=== PATIENT | female | born 2000 | race Caucasian/White ===

== ENCOUNTER → 2024-06-11 15:41 | Outpatient (REF) | payer BC, SELFPAY | LOC: CLAB 15:41 | PROVIDERS: ATTENDING PHYSICIAN Specialist | DX: N62 Hypertrophy of breast (principal) | CPT/HCPCS: 88305 ==

== ENCOUNTER 2025-04-29 17:12 | Emergency (ER) | payer BC, SELFPAY ==
[2025-04-29 17:14] VITALS: BP 126/88
[2025-04-29] MEDS: ZOFRAN ODT (ORALLY DISINTEGRATING) 4 MG PO (17:20)
[2025-04-29 17:44] LABS: Hematocrit 40.9 % (37.0-47.0); Hemoglobin 14.9 g/dL (12.0-16.0); Mean Corp Hgb Conc. 36.4 g/dL (33.0-37.0); Mean Corpuscular Volume 80.0 fL (81.0-99.0); Nucleated Red Blood Cells % 0 %; Platelet Count 402 10^3/uL (130-400); Red Cell Dist. Width 11.9 % (11.5-14.5)
[2025-04-29 17:56] LABS: HCG, Serum Qualitative Screen Negative
[2025-04-29 18:06] LABS: ALT (SGPT) 20 U/L (0-35); AST (SGOT) 19 U/L (14-36); Albumin 5.2 g/dl (3.5-5.0); Alkaline Phosphatase 89 U/L (38-126); Blood Urea Nitrogen 9 mg/dl (7-17); Calcium 10.1 mg/dl (8.4-10.2); Carbon Dioxide 17 mmol/L (22-30); Chloride 106 mmol/L (98-107); Glucose 138 mg/dl (70-99); Lipase 111 U/L (23-300); Potassium 4.7 mmol/L (3.5-5.1); Sodium 136 mmol/L (135-145); Total Protein 8.1 g/dl (6.3-8.2); eGFR > 60.00
[2025-04-29 18:45] VITALS: BP 117/87
[2025-04-29 20:08] VITALS: BMI 26.8
[2025-04-29 20:10] VITALS: BP 110/75
--- NOTE | 2025-04-29 20:38 | ED.GENMED ---
History of Present Illness
General
Chief Complaint: Abdominal Pain
Source: patient
Exam Limitations: none
Time Seen by Provider: 04/29/25 20:29
History of Present Illness
History of Present Illness:
24-year-old female type II diabetic on Mounjaro presents with onset of mid abdominal pain starting yesterday getting worse today with associated nausea. No vomiting. No fever. Pain does not radiate to the back. No urinary symptoms. No blood in
the stool or urine. No recent dose adjustment to her Mounjaro. No other complaints at this time
Phy Exam
Physical Exam
Physical Exam:
General: Uncomfortable appearing female no acute respiratory distress
HEENT normal cephalic atraumatic
Heart: Regular rate and rhythm
Lungs: Clear no wheeze
Abdomen is soft but tender to the left abdomen. Mild guarding nondistended. No costovertebral angle tenderness
Course
Orders/Labs/Results
Orders:
Orders
04/29/25 17:17
Test Result ONCE
04/29/25 17:19
Ondansetron Orally Disint [Zofran Odt (Orally Disintegrating)] 4 mg .ROUTE .STK-MED ONE
04/29/25 17:20
Ondansetron Orally Disint [Zofran Odt (Orally Disintegrating)] 4 mg PO NOW STA
04/29/25 17:23
Complete Blood Count/With Diff Urgent
Comprehensive Metabolic Panel Urgent
HCG, Serum Qualitative Screen Urgent
Lipase Urgent
04/29/25 20:38
0.9% Sodium Chloride 1000 ml [Nss] 1,000 ml IV BOLUS
HYDROmorphone [Dilaudid] 0.5 mg IV NOW STA
Ondansetron Injectable [Zofran] 4 mg IV NOW STA
04/29/25 20:40
CT Abd/pelvis W Iv Cont Urgent
Comment:
Reason For Exam: left abdominal pain
Abnormal Lab Results
04/29/25
17:23
MCV 80.0 L fL
(81.0-99.0)
Plt Count 402 H 10^3/uL
(130-400)
Abs Immat Gran (auto) 0.1 H 10^3/uL
(0-0.05)
Absolute Neuts (auto) 7.8 H 10^3/uL
(1.4-6.5)
Absolute Lymphs (auto) 1.1 L 10^3/uL
(1.2-3.4)
Neutrophils % 83.9 H %
(42.2-75.2)
Lymphocytes % 11.5 L %
(20.5-51.1)
Carbon Dioxide 17 L mmol/L
(22-30)
Glucose 138 H mg/dl
(70-99)
Total Bilirubin 1.4 H mg/dl
(0.2-1.3)
Albumin 5.2 H g/dl
(3.5-5.0)
04/29/25 17:23
04/29/25 17:23
Vital Signs
Initial and Last Documented VS:
Initial Vital Signs
Temp Pulse Resp BP Pulse Ox
97.8 F 110 20 126/88 99
04/29/25 17:14 04/29/25 17:14 04/29/25 17:14 04/29/25 17:14 04/29/25 17:14
Last Documented Vital Signs
Temp Pulse Resp BP Pulse Ox
97.8 F 88 18 106/74 99
04/29/25 17:14 04/29/25 22:12 04/29/25 18:45 04/29/25 22:07 04/29/25 22:12
MDM/Problems Addressed
Differential Diagnosis Includes:
Abdominal pain. Consider pancreatitis versus constipation versus renal colic versus diverticulitis for side effect of medication
Check labs. Will treat symptoms with fluids Zofran and Dilaudid. CT pending
*Pulse Oximetry
SaO2: 98
Oxygen Mode of Delivery: Room air
Patient hypoxic: no
*Critical Care Note
Total Time (30-74mins, 75-104mins- exclusive of procedures): Not Applicable
Update Note
Update Note:
CT reviewed and demonstrates large amount of stool in the descending colon suggest constipation with some surrounding colitis. Sterile coral colitis cannot be ruled out by this CT. Patient reexamined is feeling much better. Labs reviewed and are
normal. Discussed treatment options between admission and discharge. Offered admission for the potential severe pain and stercoral colitis however patient opted to go home with magnesium citrate. I think this is reasonable. Return precautions
were given. She will follow-up with her doctor
ED Attending Note
-
Portions of this chart may have been created with voice recognition software.� Occasional wrong word or��sound alike� substitutions may have occurred due to the inherent limitations of voice recognition software.
Discharge Plan
Departure
Patient Disposition: Home (Routine Discharge)
Date of Disposition: 04/29/25
Time of Disposition: 22:31
Patient with high blood pressure during this ER visit?: No
Discharge Problem:
Constipation
Instructions: Constipation, Adult (DC)
Referrals:
Domo Fry MD [Family Provider]
Activity Restrictions/Additional Instructions:
Drink plenty of fluids. Use magnesium citrate as directed. Return here for increasing pain fever vomiting or other concerning findings. Follow-up with your doctor otherwise
Interventions
Interventions:
*Risk Screen - Suicide Last Done: 04/29/25 17:14
*General Assessment Last Done: 04/29/25 17:14
*Neglect/Abuse Screening Last Done: 04/29/25 20:08
*ED- Fall Risk Assessment Last Done: 04/29/25 20:08
*ED COVID-19 Vaccine History Last Done: 04/29/25 20:08
*ED Influenza Vaccine History Last Done: 04/29/25 20:08
JG-Mgffrv-Onxtylwtnd Assessment Last Done: 04/29/25 20:08
Discharge Date and Time
Print Language: SINHALA
[2025-04-29] MEDS: ZOFRAN 4 MG IV (20:45)
[2025-04-29] MEDS: NSS 1000 IV (20:45)
[2025-04-29] MEDS: DILAUDID 0.5 MG IV (20:45)
[2025-04-29 22:07] VITALS: BP 106/74
[2025-04-29] MEDS: CITROMA 300 ML PO (22:42)
== END 2025-04-29 22:46 | disposition home or self-care (01) ==
LOC: EMR 17:12
PROVIDERS: Emergency Medicine; EMERGENCY PHYSICIAN Emergency Medicine; FAMILY PHYSICIAN Internal Medicine
DX: K59.00 Constipation, unspecified (principal); E11.9 Type 2 diabetes mellitus without complications; Z79.85 Long-term (current) use of injectable non-insulin antidiabetic drugs
CPT/HCPCS: 96374; 96375; 96361; 99284; 74177; 80053; 83690; 84703; 85025; Q9967

== ENCOUNTER 2025-05-04 19:27 | Emergency (ER) | payer BC, SELFPAY ==
[2025-05-04 19:31] VITALS: BP 114/84
--- NOTE | 2025-05-04 20:12 | ED.GENMED ---
History of Present Illness
General
Chief Complaint: Bowel Problem
Source: patient
Time Seen by Provider: 05/04/25 19:52
History of Present Illness
History of Present Illness:
This patient is a 24-year-old female who presents emergency department with concerns of constipation abdominal pain. This patient states 'I get abdominal pain pretty often', since starting Mounjaro about a year ago. She denies recent changes in
the dosage, and is due to text take her next dose tomorrow morning. This week, patient developed more severe than typical abdominal pain mostly in the epigastric but also left upper quadrant area associated with increasing in her baseline nausea.
She went to the emergency department here and was diagnosed with constipation with possibility of nonspecific colitis or sterile coral colitis. She was prescribed magnesium citrate which she took at home and notes that her pain resolved completely
and she had several nonbloody bowel movements. Her last bowel movement was yesterday and was normal. However, today, she again developed a gradual onset of of the discomfort in the epigastric left upper quadrant area with associated nausea. She
denies vomiting, chest pain, dyspnea, back pain, urinary symptoms, vaginal discharge or bleeding. The pain is nonradiating without exacerbating relieving factors.
Past History
Past History
ED Past Medical History: Psychiatric and Other (TMJ, fibromyalgia, migraines, diabetes type 2, [place] nidus suppurativa)
Social History
Tobacco: Non-smoker
Alcohol: Occasional
Drug: None
Living: alone
Phy Exam
Physical Exam
Physical Exam:
GENERAL: Alert , in no apparent distress
EYE: pupils equal and reactive
NECK: Supple, no significant adenopathy.
ENT: o/p clr, mmm.
CARDIAC: Regular rate and rhythm .
LUNGS: Clear breath sounds bilaterally, no acute respiratory distress, no wheezes/rales/rhonchi
ABDOMEN: Soft, without focal tenderness, no r/g, no cvat
NEUROLOGICAL: Alert and oriented, no focal neuro deficits
SKIN: Warm and dry, skin intact.
MUSCULOSKELETAL: No edema, well perfused.
PSYCH: Normal and appropriate interaction.
Course
Orders/Labs/Results
Orders:
Orders
05/04/25 20:12
0.9% Sodium Chloride 1000 ml [Nss] 1,000 ml IV BOLUS
Ondansetron Injectable [Zofran] 4 mg IV NOW STA
CR Obstruct Series W/pa Chest Urgent
Comment:
Reason For Exam: pain
05/04/25 20:34
Complete Blood Count/No Diff Urgent
Comprehensive Metabolic Panel Urgent
HCG, Serum Qualitative Screen Urgent
Lipase Urgent
05/04/25 20:54
Add On- LAB Urgent
Tests Added?: serum hcg
Abnormal Lab Results
05/04/25
20:34
MCV 79.9 L fL
(81.0-99.0)
Plt Count 424 H 10^3/uL
(130-400)
Carbon Dioxide 19 L mmol/L
(22-30)
Glucose 106 H mg/dl
(70-99)
ALT 39 H U/L
(0-35)
Total Protein 8.4 H g/dl
(6.3-8.2)
Albumin 5.2 H g/dl
(3.5-5.0)
05/04/25 20:34
05/04/25 20:34
Vital Signs
Initial and Last Documented VS:
Initial Vital Signs
Temp Pulse Resp BP Pulse Ox
98.4 F 115 18 114/84 99
05/04/25 19:31 05/04/25 19:31 05/04/25 19:31 05/04/25 19:31 05/04/25 19:31
Last Documented Vital Signs
Temp Pulse Resp BP Pulse Ox
98.4 F 90 16 108/78 99
05/04/25 19:31 05/04/25 21:30 05/04/25 21:30 05/04/25 21:00 05/04/25 21:30
*Pulse Oximetry
SaO2: 99
Oxygen Mode of Delivery: Room air
Patient hypoxic: no
*Critical Care Note
Total Time (30-74mins, 75-104mins- exclusive of procedures): Not Applicable
Update Note
Update Note:
Patient presents to the Emergency Department with __abdominal pain and nausea
Number and Complexity of Problems Addressed at the Encounter
� Chronic conditions affecting care:
� Acute Exacerbation and/or Progression of Chronic Illness:
� Differential Diagnosis includes: But not limited to ileus, bowel obstruction, constipation, nonspecific abdominal pain, pancreatitis, medication effect, etc. etc.
Amount and/or Complexity of Data to be Reviewed and Analyzed
� I performed an independent evaluation of and my interpretation is:
EKG:
CT:
Xrays:No evidence of active cardiopulmonary disease.
Moderate amount of stool within the colon, suggesting a degree of constipation. Air-fluid levels within the right colon on the erect view, suggesting a degree of bowel stasis.
No radiographic findings to suggest bowel obstruction or free intraperitoneal air.
Laboratory Studies: Generally unremarkable
Other:
� Review of other/old records reveals:
� Clinical information was obtained by an independent historian:
� Prescriptions/Medications Considered but not given:
� Further testing considered but not performed:
Risk of Complications and/or Morbidity or Mortality of Patient Management
� Social determinants of health affecting care:
� Discussion with other providers (PCP, Hospitalists, Consultants, etc):
� Escalation of care including admission/observation vs risk of discharge considered: No obstruction noted, no nausea or vomiting here, no free air. Patient does have constipation, and we had a long discussion regarding
management of this and importance of close follow-up, consideration of medication related symptoms, continuation of MiraLAX every day, etc. I also discussed with her reasons to return the emergency room department. She is comfortable, and eager to
go home.
ED Attending Note
-
Portions of this chart may have been created with voice recognition software.� Occasional wrong word or��sound alike� substitutions may have occurred due to the inherent limitations of voice recognition software.
Discharge Plan
Departure
Patient Disposition: Home (Routine Discharge)
Date of Disposition: 05/04/25
Time of Disposition: 23:07
Patient with high blood pressure during this ER visit?: No
Condition: Good
Discharge Problem:
Constipation
Instructions: Constipation, Adult (DC), Abdominal Pain
Prescriptions:
No Action
clonidine HCl 0.1 mg Tablet
0.1 mg PO BID
spironolactone 100 mg Tablet
200 mg PO DAILY
oxcarbazepine [Trileptal] 300 mg Tablet
300 mg PO BID
lorazepam 1 mg Tablet
1 mg PO TID
topiramate 15 mg Capsule, Sprinkle
30 mg PO DAILY
dextroamphetamine-amphetamine [Adderall XR] 30 mg Capsule,Extended Release 24hr
60 mg PO DAILY
guanfacine 2 mg Tablet
2 mg PO BID
prazosin 2 mg Capsule
2 mg PO DAILY
bupropion HCl [Wellbutrin XL] 300 mg Tablet Extended Release 24 Hr
300 mg PO DAILY
Lo Loestrin Fe 1 mg-10 mcg (24)/10 mcg (2) Tablet
1 tab PO DAILY
duloxetine 30 mg Capsule, Delayed Rel Sprinkle
30 mg PO TID
Mounjaro 5 mg/0.5 mL Pen Injector
5 mg SC QWEEK
Referrals:
Domo Fry MD [Family Provider]
Penny Carver MD [Active, Gastroenterology] - Next open appointment
Activity Restrictions/Additional Instructions:
PLEASE CONTACT YOUR DOCTOR THIS WEEK FOR CLOSE FOLLOW-UP. IF YOU DEVELOP INCREASING OR NEW PAIN, FEVER, REPEATED VOMITING, BLEEDING, OR OTHER WORRISOME SIGNS, PLEASE RETURN TO THE ER IMMEDIATELY!
Interventions
Interventions:
*Risk Screen - Suicide Last Done: 05/04/25 19:31
*General Assessment Last Done: 05/04/25 19:31
*Neglect/Abuse Screening Last Done: 05/04/25 19:31
*ED- Fall Risk Assessment Last Done: 05/04/25 20:53
*ED COVID-19 Vaccine History Last Done: 05/04/25 20:53
*ED Influenza Vaccine History Last Done: 05/04/25 20:53
LF-Ewwumm-Pevjpuknxp Assessment Last Done: 05/04/25 20:53
Discharge Date and Time
Print Language: WELSH
[2025-05-04] MEDS: NSS 1000 IV (20:32)
[2025-05-04] MEDS: ZOFRAN 4 MG IV (20:32)
[2025-05-04 20:33] VITALS: BP 113/81
[2025-05-04 20:35] VITALS: BMI 25.8
[2025-05-04 20:42] LABS: Hematocrit 42.5 % (37.0-47.0); Hemoglobin 15.2 g/dL (12.0-16.0); Mean Corp Hgb Conc. 35.8 g/dL (33.0-37.0); Mean Corpuscular Volume 79.9 fL (81.0-99.0); Platelet Count 424 10^3/uL (130-400); Red Cell Dist. Width 12.0 % (11.5-14.5)
[2025-05-04 21:00] VITALS: BP 108/78
[2025-05-04 21:06] LABS: HCG, Serum Qualitative Screen Negative
[2025-05-04 21:13] LABS: ALT (SGPT) 39 U/L (0-35); AST (SGOT) 24 U/L (14-36); Albumin 5.2 g/dl (3.5-5.0); Alkaline Phosphatase 90 U/L (38-126); Blood Urea Nitrogen 10 mg/dl (7-17); Calcium 9.9 mg/dl (8.4-10.2); Carbon Dioxide 19 mmol/L (22-30); Chloride 106 mmol/L (98-107); Estimated Creatinine Clearance 78 ml/min; Glucose 106 mg/dl (70-99); Lipase 68 U/L (23-300); Potassium 4.4 mmol/L (3.5-5.1); Sodium 137 mmol/L (135-145); Total Protein 8.4 g/dl (6.3-8.2); eGFR > 60.00
== END 2025-05-04 23:20 | disposition home or self-care (01) ==
LOC: EMR 19:27
PROVIDERS: EMERGENCY PHYSICIAN Emergency Medicine; FAMILY PHYSICIAN Internal Medicine
DX: K59.00 Constipation, unspecified (principal); E11.9 Type 2 diabetes mellitus without complications; M79.7 Fibromyalgia
CPT/HCPCS: 96374; 96361; 99284; 74022; 80053; 83690; 84703; 85027